=== PATIENT | female | born 1970 | race Caucasian/White ===

== ENCOUNTER → 2022-04-20 | Day surgery (SDC) | payer OTHER ==
[~2022-04-20] VITALS: Ht 157.5 cm; Wt 122.6 kg
[~2022-04-20] MED LIST: ALLEGRA ALLERG180 MG PO; BIOTIN10000 MCG PO; CENTRUM ADULTS1 EACH PO; CLARITIN10 MG PO; FEXOFENADINE H180 MG PO; FLONASE ALLER15.8 ML; OMEPRAZOLE40 MG PO; SINGULAIR10 MG PO; STOOL SOFTENER100 MG PO; ZYRTEC10 MG PO
[2022-04-20 09:26] LABS: HCT 42.1 % (37.0-47.0); HGB 14.3 g/dl (12.5-16.0); MCH 31.2 pg (25.0-31.0); MCV 91.9 fL (78.0-100.0); MPV 9.9 fL (6.0-9.5); RBC 4.58 M/uL (4.20-5.40); RDW 11.9 % (11.5-14.0); WBC 7.8 K/uL (4.0-10.5)
[2022-04-20 09:48] LABS: ALBUMIN 3.9 g/dL (3.4-5.0); BILIRUBIN - TOTAL 0.5 mg/dL (0.2-1.0); BUN/CREAT RATIO (CALC) 22.9 RATIO; CREATININE 0.7 mg/dL (0.51-0.95); GLOBULIN (CALCULATION) 3.8 g/dL; TOTAL PROTEIN 7.7 g/dL (6.4-8.2)
== END | disposition home or self-care (01) ==
LOC: FAS 08:26
PROVIDERS: Surgery
DX: Z12.11 Encounter for screening for malignant neoplasm of colon (principal); K21.9 Gastro-esophageal reflux disease without esophagitis; Z86.010 Personal history of colon polyps; Z85.038 Personal history of other malignant neoplasm of large intestine
CPT/HCPCS: 36415; 80053; J2704; J7120